=== PATIENT | female | born 1970 | race Caucasian/White ===

== ENCOUNTER 2020-05-02 23:29 | Emergency (ER) | payer SELFPAY ==
[2020-05-02 23:30] VITALS: BP 130/82; PULSE 96; RESP 16; TEMP 36.6; O2SAT 97; BMI 17.9
[2020-05-02 23:45] LABS: Basophils % 0.4 % (0.1-2.0); Eosinophils # 0.1 K/mm3 (0.0-0.4); Eosinophils % 1.3 % (0.1-12.0); Hematocrit 44.6 % (37.0-47.0); Hemoglobin 14.5 g/dL (12.2-16.2); Lymphocytes % 29.9 % (10-50); Mean Corpuscular HGB Conc 32.5 g/dL (31.8-35.4); Mean Corpuscular Volume 101.7 fl (81-99); Mean Platelet Volume 8.3 fl (7.4-10.4); Monocytes # 0.4 K/mm3 (0.1-1.0); Monocytes % 5.1 % (1.7-9.3); Neutrophils # 4.3 K/mm3 (1.8-7.8); Neutrophils % 63.3 % (37.0-80.0); Platelet Count 232 K/mm3 (142-424); Red Blood Count 4.38 M/mm3 (4.20-5.40); Red Cell Distribution Width 11.9 % (11.5-17.5); White Blood Count 6.7 K/mm3 (4.8-10.8)
[2020-05-02 23:46] LABS: Chloride 101 mmol/L (98-107)
[2020-05-02 23:47] LABS: Potassium 3.6 mmoL/L (3.5-5.1); Sodium 139 mmol/L (136-145)
[2020-05-02 23:49] LABS: Alanine Aminotransferase 16 U/L (12-78); Alkaline Phosphatase 50 U/L (38-126); Anion Gap 10.6 mEq/L (5-15); Aspartate Amino Transferase 25 U/L (14-36); Bilirubin,Total 0.4 mg/dl (0.2-1.3); Blood Urea Nitrogen 14 mg/dl (7-17); Carbon Dioxide 31 mmol/L (22.0-30.0); Creatinine Clearance Estimated 67 mL/min (50-200); Estimated Glomerular Filt Rate 89 ml/min (>60); GFR (African American) 108 ML/MIN (>60)
[2020-05-02 23:50] LABS: Albumin Level 4.2 g/dl (3.5-5.0); Albumin/Globulin Ratio 1.5 (1.1-1.8); Calcium 9.5 mg/dl (8.4-10.2); Globulin 2.8 g/dL (1.3-3.2); Glucose 101 mg/dl (74-100)
[2020-05-03] LABS: Ethyl Alcohol < 10 mg/dl (0-10)
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
[2020-05-03 00:04] VITALS: BP 130/85; PULSE 86; RESP 18; O2SAT 97
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
[2020-05-03 01:36] VITALS: BP 124/62; PULSE 84; RESP 14; TEMP 36.6; O2SAT 97
== END 2020-05-03 02:14 | disposition home or self-care (01) ==
PROVIDERS: Emergency Provider Emergency Medicine; PCP Family Medicine
DX: S49.91XA Unspecified injury of right shoulder and upper arm, initial encounter (principal); V49.50XA Passenger injured in collision with unspecified motor vehicles in traffic accident, initial encounter
CPT/HCPCS: 71045; 71275; 72125; 72131; 72170; 73030; 74177; 80053; 85025; 99281; Q9967

== ENCOUNTER → 2022-07-20 14:00 | Outpatient (CLI) | payer MEDICAID, SELFPAY ==
[2022-07-20 18:15] LABS: Coronavirus 19, PCR Not Detected (NotDetected); Influenza B, PCR Not Detected (NotDetected)
[2022-07-20 19:08] LABS: Influenza A, PCR Detected (NotDetected)
== END ==
PROVIDERS: PCP Family Medicine; Visit Provider Family Medicine
DX: J32.9 Chronic sinusitis, unspecified (principal); J09.X2 Influenza due to identified novel influenza A virus with other respiratory manifestations
CPT/HCPCS: C9803; U0003; U0005